=== PATIENT | male | born 1965 | race Caucasian/White ===

== ENCOUNTER 2020-09-01 05:01 | Emergency (ER) | payer BC ==
[~2020-09-01] VITALS: Ht 170.2 cm; Wt 90.7 kg
--- NOTE | 2020-09-01 05:10 | NUR ---
54 year old male presents to ED from home for Severe Right Flank pain. Pain is 10/10 - patient is screaming, groaning, and teary eyed. Examing the patients previous history here, he has had two separate visits (10 years ago) that ended up with a diagnosis of Kidney Stones. Patient confirms this is a recurring issue. Vitals non-remarkable. Slightly hypertensive. Hx of HTN & Hypercholesterolemia.
[2020-09-01] MEDS: IV NORMAL SALINE 1000 ML BAG IV ONE ×2 (05:24→06:34)
[2020-09-01] MEDS: KETOROLAC TROMETHAMINE 15 MG INJ IVP ONE (05:24)
[2020-09-01] MEDS: HYDROMORPHONE 1 MG/1 ML DISP.SYRIN IV ONE (05:24)
[2020-09-01] MEDS ORDERED: KETOROLAC TROMETHAMINE 30 MG INJ ONE (05:24)
[2020-09-01] MEDS: ONDANSETRON 4 MG/2 ML VIAL IV ONE (05:24)
[2020-09-01] MEDS ORDERED: HYDROMORPHONE 2 MG/1 ML DISP.SYRIN ONE (05:25)
[2020-09-01] MEDS ORDERED: ONDANSETRON 4 MG/2 ML VIAL ONE (05:26)
[2020-09-01 05:28] LABS: BASOPHILS # (AUTO) 0.1 K/uL (0.0-8.0); EOSINOPHILS # (AUTO) 0.2 K/uL (0.0-0.7); EOSINOPHILS % (AUTO) 2.2 % (0.0-7.0); HEMATOCRIT 43.2 % (36.7-47.1); HEMOGLOBIN 14.8 g/dL (12.5-16.3); LYMPHOCYTES # (AUTO) 2.9 K/uL (20.0-40.0); LYMPHOCYTES % (AUTO) 41.6 % (20.5-51.5); MEAN CORPUSCULAR HEMOGLOBIN 30.3 uug (23.8-33.4); MEAN CORPUSCULAR HGB CONC 34 g/dL (32.5-36.3); MEAN CORPUSCULAR VOLUME 88.7 fL (73.0-96.2); MONOCYTES # (AUTO) 0.9 K/uL (2.0-10.0); MONOCYTES % (AUTO) 12.3 % (0.0-11.0); NEUTROPHILS % (AUTO) 42.9 % (38.5-71.5); PLATELET COUNT (AUTO) 239 K/uL (152-348); RED BLOOD CELL COUNT(AUTO) 4.87 MIL/uL (4.06-5.63); WHITE BLOOD COUNT (AUTO) 7.1 K/uL (3.6-10.2)
[2020-09-01 05:33] LABS: CREATININE 1.6 mg/dL (0.6-1.3); POTASSIUM 3.7 mmol/L (3.5-5.1)
[2020-09-01 05:39] LABS: BILIRUBIN,DIRECT 0.1 mg/dL (0.0-0.2); BILIRUBIN,TOTAL 0.4 mg/dL (0.2-1.0); TOTAL PROTEIN, SERUM 7.4 g/dL (6.4-8.2)
--- NOTE | 2020-09-01 05:56 | NUR ---
Patient down for CT Abdomen/Pelvis
[2020-09-01 06:15] LABS: *BILIRUBIN,URIN NEGATIVE (NEGATIVE); *BLOOD, URINE 3+ (NEGATIVE); *CLARITY,URINE SLIGHTLY CLOUDY (CLEAR); *COLOR,URINE YELLOW (YELLOW); *KETONES,URINE NEGATIVE (NEGATIVE); *UROBILINOGEN,URINE 0.2 E.U./dl (NORMAL); LEUKOCYTE ESTERASE ,URINE NEGATIVE (NEGATIVE); NITRITE, URINE NEGATIVE (NEGATIVE); UGLUCOSE NEGATIVE (NEGATIVE)
[2020-09-01] MEDS ORDERED: OXYC-121 PO (06:35)
[2020-09-01 06:43] VITALS: BP 137/81
[2020-09-01 06:50] LABS: MUCUS,URINE FEW /LPF (0-FEW); SQUAMOUS EPITHELIAL CELL,UR FEW /HPF (NONE SEEN)
[2020-09-01 06:51] LABS: RBC,URINE 80-100 /HPF (0-3)
[2020-09-01 06:52] LABS: BACTERIA,URINE FEW /HPF (NONE SEEN); WBC,URINE 0-3 /HPF (0-3)
[2020-09-01 06:55] LABS: YEAST,URINE FEW /HPF (NONE SEEN)
--- NOTE | 2020-09-01 07:01 | NUR ---
Patient discharged to home in stable condition. Written and verbal after care instructions given. Patient verbalizes understanding of instructions. Stressed follow up or return to ER for worsening s/s. Rx given. Belongings with patient.
== END 2020-09-01 07:01 | disposition home or self-care (01) ==
LOC: ER 05:06
DX: N20.0 Calculus of kidney (principal); Z87.442 Personal history of urinary calculi; I10 Essential (primary) hypertension; E78.00 Pure hypercholesterolemia, unspecified
CPT/HCPCS: 36415; 74176; 80048; 80076; 81001; 83690; 85025; 87086; 96361; 96374; 96375; 99284; J1170; J1885; J2405; A4663; J7030